=== PATIENT | female | born 1970 | race Caucasian/White ===

== ENCOUNTER 2019-04-09 19:42 | Emergency (ER) | payer OTHER ==
[~2019-04-09] VITALS: Ht 165.1 cm; Wt 103.4 kg
[~2019-04-09 19:42] MED LIST: CIPR500T4 PO; ONDA-24 PO; [UNRECOGNIZED DRUG - REMARK]
[2019-04-09 19:50] VITALS: BP 137/87
[2019-04-09 19:52] VITALS: BP 134/77
--- NOTE | 2019-04-09 19:55 | NUR ---
EKG PERFORMED AND SHOWN TO DR RIVER , PT TO XRAY VIA WHEELCHAIR AND THEN TO WAIT IN [facility].
--- NOTE | 2019-04-09 22:02 | NUR ---
PT AMBULATED TO ER BED 11
--- NOTE | 2019-04-09 22:22 | NUR ---
49 Y/O FEMALE PRESENTS TO ED, C/O CHEST PAIN X4 DAYS. PT STATES SHE HAS CHEST PAIN 8/10 ACHING THAT RADIATES TO HER BACK. PT TOOK MOTRIN THIS MORNING BUT WAS INEFFECTIVE. PT DENIES ANY SOB. PT HAS HX OF HTN, COMPLIANT TO BP MEDS. PT VSS. ERMD AWARE. WILL CONTINUE TO MONITOR.
[2019-04-09 22:52] LABS: BASOPHILS # (AUTO) 0.1 K/uL (0.00-0.22); BASOPHILS % (AUTO) 0.8 % (0.0-2.0); EOSINOPHILS # (AUTO) 0.2 K/uL (0-0.4); EOSINOPHILS % (AUTO) 2.2 % (0.0-4.0); HEMOGLOBIN 12.6 g/dL (12.0-16.0); LYMPHOCYTES # (AUTO) 3.6 K/uL (2.5-16.5); MEAN CORPUSCULAR HEMOGLOBIN 30 pg (27-31); MEAN CORPUSCULAR HGB CONC 34 g/dL (33-37); MEAN CORPUSCULAR VOLUME 88.8 fL (80-94); MONOCYTES # (AUTO) 0.5 K/uL (0.8-1.0); MONOCYTES % (AUTO) 5.8 % (1.7-9.3); NEUTROPHILS # (AUTO) 3.7 K/uL (1.8-7.7); NEUTROPHILS % (AUTO) 46.2 % (42.2-75.2); PLATELET COUNT (AUTO) 312 K/uL (140-450); RED BLOOD CELL COUNT(AUTO) 4.17 MIL/uL (4.20-5.40); RED CELL DISTRIBUTION WIDTH 12.7 % (11.6-13.7)
[2019-04-09 23:09] LABS: ALBUMIN 3.8 g/dL (3.4-5.0); ANION GAP 11.7 (8-16); POTASSIUM 3.7 mmol/L (3.5-5.1); TOTAL BILIRUBIN 0.2 mg/dL (0.0-1.0)
[2019-04-09] MEDS ORDERED: KETOROLAC 30 MG/ML VIAL IVP ONE (23:40)
[2019-04-10 00:07] VITALS: BP 128/75
--- NOTE | 2019-04-10 00:07 | NUR ---
PT DISCHARGED WITH PAPERWORK. RX MOTRIN, PREDNISONE, NORCO. EDUCATED PT REGARDING MEDICATIONS AND S/E. EDUCATED PT REGARDING D/C DIAGNOSIS. PT VERBALIZED UNDERSTANDING OF TEACHING. TOLD PT TO FOLLOW UP WITH PCP AND WHEN TO RETURN TO ED. PT VSS. DENIES ANY PAIN. ALL QUESTIONS ANSWERED.
== END 2019-04-10 00:07 | disposition home or self-care (01) ==
LOC: MED 19:42
DX: R07.89 Other chest pain (principal); R05 Cough; I10 Essential (primary) hypertension; E07.9 Disorder of thyroid, unspecified; Z90.49 Acquired absence of other specified parts of digestive tract; Z90.710 Acquired absence of both cervix and uterus; Z79.899 Other long term (current) drug therapy
CPT/HCPCS: 36415; 71045; 80053; 84484; 85025; 96374; 99284; J1885

== ENCOUNTER 2022-03-25 18:26 | Emergency (ER) | payer OTHER ==
[~2022-03-25] VITALS: Ht 157.5 cm; Wt 75.7 kg
[~2022-03-25 18:26] MED LIST changes: +ONDA-188 PO; -ONDA-24 PO
[2022-03-25 18:52] VITALS: BP 139/84
--- NOTE | 2022-03-25 18:59 | NUR ---
52YO FEMALE PT C/O BUG BITE XYERSTERDAY. PT STATES SHE WAS BIT BY UNKNOWN BUG YESTERDAY AFTERNOON AND HAS HAD INCREASED ACHING 8/10 PAIN IN R ARM SINCE. PT ARM PRESENTS W/ MILD REDDENED SWELLING AT R INNER ELBOW . ARM WARM AND NON TENDER TO TOUCH , CAP REFILL <3. NO VISIBLE BITE PRESENT. PT STATES ICING SITE W/ NO RELIEF, DENIES TAKING MEDICATION FOR PAIN. PT HAS FULL ROM OF ARM W/ EASE. DENIES N/V/D , CHILLS , CHEST PAIN OR SOB. PT AAOX4, RESPIRATIONS EVEN AND UNLABORED. HX: HTN, DIABETES, HYPOTHYROID NKA
--- NOTE | 2022-03-25 19:20 | NUR ---
REPORT GIVEN TO KIMBER KIM. ALL QUESTIONS ANSWERED. TRANSFER OF CARE AT THIS TIME
[2022-03-25] MEDS ORDERED: CEPH-588 PO (19:26)
[2022-03-25] MEDS ORDERED: CETI-24 PO (19:26)
[2022-03-25] MEDS ORDERED: HYD1C TP (19:26)
[2022-03-25 19:55] VITALS: BP 139/84
--- NOTE | 2022-03-25 19:55 | NUR ---
Patient discharged with v/s stable. Written and verbal after care instructions given and explained. Patient alert, oriented and verbalized understanding of instructions. Ambulatory with steady gait. All questions addressed prior to discharge. ID band removed. Patient advised to follow up with PMD. Rx of KEFLEX. CETRIZINE, HYDRPCORTISONE given.Opportunity to ask questions provided and answered.
== END 2022-03-25 19:55 | disposition home or self-care (01) ==
LOC: MED 18:26
DX: L03.113 Cellulitis of right upper limb (principal); I10 Essential (primary) hypertension; E07.9 Disorder of thyroid, unspecified; Z79.899 Other long term (current) drug therapy
CPT/HCPCS: 99283

== ENCOUNTER 2022-12-31 18:42 | Emergency (ER) | payer OTHER ==
[~2022-12-31] VITALS: Ht 157.5 cm; Wt 72.6 kg
[~2022-12-31 18:42] MED LIST changes: +CEPH-588 PO; +CETI-24 PO; +HYD1C TP
[2022-12-31 19:47] VITALS: BP 116/66
--- NOTE | 2022-12-31 19:51 | NUR ---
Pt triaged and placed in WR. No acute signs of distress noted.
--- NOTE | 2022-12-31 22:00 | NUR ---
PT TAKEN TO ULTRASOUND
[2022-12-31 22:26] LABS: BASOPHILS # (AUTO) 0.1 K/uL (0.00-0.22); BASOPHILS % (AUTO) 1.2 % (0.0-2.0); EOSINOPHILS # (AUTO) 0.1 K/uL (0-0.4); EOSINOPHILS % (AUTO) 1.8 % (0.0-4.0); HEMATOCRIT 34.7 % (36-48); HEMOGLOBIN 11.7 g/dL (12.0-16.0); LYMPHOCYTES # (AUTO) 1.1 K/uL (2.5-16.5); LYMPHOCYTES % (AUTO) 24.5 % (20.5-51.1); MEAN CORPUSCULAR HEMOGLOBIN 30 pg (27-31); MEAN CORPUSCULAR HGB CONC 34 g/dL (33-37); MEAN CORPUSCULAR VOLUME 89.5 fL (80-94); MONOCYTES # (AUTO) 0.3 K/uL (0.8-1.0); MONOCYTES % (AUTO) 7.3 % (1.7-9.3); NEUTROPHILS # (AUTO) 2.9 K/uL (1.8-7.7); NEUTROPHILS % (AUTO) 65.2 % (42.2-75.2); PLATELET COUNT (AUTO) 280 K/uL (140-450); RED BLOOD CELL COUNT(AUTO) 3.88 MIL/uL (4.20-5.40); WHITE BLOOD COUNT (AUTO) 4.4 K/uL (4.8-10.8)
[2022-12-31 22:40] LABS: ALBUMIN 3.9 g/dL (3.4-5.0); ANION GAP 7.8 (8-16); CARBON DIOXIDE 31.5 mmol/L (21-32); CREATININE 0.7 mg/dL (0.6-1.3); POTASSIUM 4.3 mmol/L (3.5-5.1); TOTAL BILIRUBIN 0.3 mg/dL (0.0-1.0)
[2023-01-01 00:01] LABS: APPEARANCE,URINE CLEAR (CLEAR); BILIRUBIN,URINE NEGATIVE (NEGATIVE); BLOOD, URINE NEGATIVE (NEGATIVE); COLOR,URINE YELLOW (YELLOW); LEUKOCYTE ESTERASE ,URINE NEGATIVE (NEGATIVE); NITRITE, URINE NEGATIVE (NEGATIVE); UGLUCOSE NEGATIVE (NEGATIVE)
[2023-01-01] MEDS ORDERED: FAMO-92 PO (01:13)
--- NOTE | 2023-01-01 01:15 | NUR ---
PT CLEARED FOR D/C BY DR. GROVE. ALL D/C INSTRUCTIONS VERBALIZED TO PT BY DR. GROVE. RX OF PEPCID GIVEN
== END 2023-01-01 01:15 | disposition home or self-care (01) ==
LOC: MED 18:42
DX: K29.70 Gastritis, unspecified, without bleeding (principal); K76.0 Fatty (change of) liver, not elsewhere classified; E11.9 Type 2 diabetes mellitus without complications; I10 Essential (primary) hypertension; Z90.49 Acquired absence of other specified parts of digestive tract; Z79.899 Other long term (current) drug therapy; Z79.2 Long term (current) use of antibiotics
CPT/HCPCS: 36415; 76705; 80053; 81003; 82150; 83690; 85025; 99284; Q0092

== ENCOUNTER 2023-08-26 19:09 | Emergency (ER) | payer OTHER ==
[~2023-08-26] VITALS: Ht 162.6 cm; Wt 68.0 kg
[~2023-08-26 19:09] MED LIST changes: +FAMO-92 PO
[2023-08-26 19:35] VITALS: BP 129/61; PULSE 66; RESP 18; TEMP 97; O2SAT 98
[2023-08-26] MEDS ORDERED: KETOROLAC 30 MG/ML VIAL IM ONE (20:25)
[2023-08-26] MEDS ORDERED: DICL100G32 TP (20:46)
[2023-08-26] MEDS ORDERED: NAPR-1704 PO (20:46)
== END 2023-08-26 20:58 | disposition home or self-care (01) ==
LOC: MED 19:09
DX: M79.641 Pain in right hand (principal); E11.9 Type 2 diabetes mellitus without complications; I10 Essential (primary) hypertension; Z79.4 Long term (current) use of insulin; Z79.899 Other long term (current) drug therapy
CPT/HCPCS: 73130; 96372; 99283